=== PATIENT | male | born 1970 | race Caucasian/White ===

== ENCOUNTER 2016-07-28 13:20 | Emergency (ER) | payer OTHER ==
[~2016-07-28] VITALS: Ht 185.4 cm; Wt 120.2 kg
[2016-07-28 13:34] VITALS: BP_SYST 152
[2016-07-28] MEDS ORDERED: ALBUTEROL SULFATE 0.083% 2.5 MG/3 ML VIAL.NEB INH ONE (14:15)
[2016-07-28 15:53] VITALS: BP_SYST 145
== END 2016-07-28 15:53 | disposition home or self-care (01) ==
LOC: SED 13:20
DX: J40 Bronchitis, not specified as acute or chronic (principal); E11.9 Type 2 diabetes mellitus without complications; I10 Essential (primary) hypertension
CPT/HCPCS: 71020-TC; 94640; 99284